=== PATIENT | female | born 1955 | race Caucasian/White ===

== ENCOUNTER 2017-10-18 13:46 | Emergency (ER) | payer OTHER, BC ==
[2017-10-18] MEDS ORDERED: HYDROcodone/Acetaminophen 5/325 mg Tablet ONE ×2 (14:08→15:12)
--- NOTE | 2017-10-18 16:18 | RAD ---
TWO VIEWS OF THE RIGHT HUMERUS: 10/18/17 HISTORY: Injury to right humerus. Fall from horse. Right humeral head fracture. COMPARISON: Views of the right shoulder 10/18/17. FINDINGS: There is a comminuted fracture involving the right humeral head as well as involving the right ilan l neck. The distal fracture fragment is displaced medially with respect to the humeral head which is rotated. There is no evidence of a dislocation. Acromioclavicular joint osteoarthritis is present. N o additional fracture is seen involving the right humerus. IMPRESSION: Comminuted fracture involving the proximal right humerus which involves the right humeral head and ri ght humeral neck. There is mild overriding and displacement of fracture fragments. POS: [facility]
== END 2017-10-18 15:25 | disposition home or self-care (01) ==
LOC: ERS 13:46
DX: S42.291A Other displaced fracture of upper end of right humerus, initial encounter for closed fracture (principal); I44.7 Left bundle-branch block, unspecified; V80.010A Animal-rider injured by fall from or being thrown from horse in noncollision accident, initial encounter
CPT/HCPCS: 23600

== ENCOUNTER 2017-10-20 15:04 | Outpatient (CLI) | payer OTHER, BC ==
--- NOTE | 2017-10-20 19:12 | CT ---
NONCONTRAST CT RIGHT SHOULDER: Date: 10/20/17 HISTORY: Right proximal humeral fracture. FINDINGS: There is a comminuted fracture involving the right humeral head and greater tuberosity, as well as in volving the right humeral neck. Fracture of the right humeral neck is predominantly a transverse frac ture and the distal fracture fragment is displaced anteriorly by 3/4 shaft width. The humeral head is rotated dorsally. There is separation and mild displacement of some of the fracture fragments involv ing the comminuted fracture of the proximal humerus. There is no evidence of a dislocation. No fractu re is seen involving the distal clavicle or the scapula. No fracture is seen involving the upper righ t-sided ribs. There is a small right glenohumeral joint effusion. There is minimal right apical pleural and parenchymal scarring. Remainder of the visualized right emilio g is clear. IMPRESSION: 1. Comminuted fracture involving the right humeral head and greater tuberosity, as well as the neck of the right humerus. Distal fracture fragment is displaced anteriorly with separation of additional smaller fracture fragments. 2. Small joint effusion. 3. Subcutaneous edema about the right shoulder greater anteriorly. There is also subcutaneous edema extending into the infraclavicular region on the right. POS: [facility]
== END 2017-10-20 15:05 | disposition home or self-care (01) ==
LOC: SCSCT 15:04
PROVIDERS: ATTEND Orthopaedic Surgery
DX: S42.251A Displaced fracture of greater tuberosity of right humerus, initial encounter for closed fracture (principal); M25.411 Effusion, right shoulder; R60.0 Localized edema